=== PATIENT | male | born 1965 | race Two or more races ===

== ENCOUNTER 2019-08-19 10:46 | Inpatient (IN) | payer MEDICAID ==
[~2019-08-19] VITALS: Ht 188 cm; Wt 64.9 kg
[2019-08-19] MEDS ORDERED: ASPIRIN 325MG EC TABLET PO ONE (12:00)
[2019-08-19 12:01] LABS: BASOPHILS % 1.1 % (0.0-2.0); EOSINOPHILS % 2.1 % (0.0-5.0); HEMATOCRIT. 43.8 % (42.0-52.0); HEMOGLOBIN. 14.2 g/dL (14.0-18.0); LYMPHOCYTES % 24.8 % (20.0-50.0); MEAN CORPUSCULAR HEMOGLOBIN 27.4 pg (28.0-32.0); MEAN CORPUSCULAR VOLUME 84.6 fL (80.0-94.0); MEAN PLATELET VOLUME 8.8 fl (7.4-10.4); MONOCYTES % 7.7 % (2.0-8.0); NEUTROPHILS % 64.3 % (40.0-76.0); PLATELET 201 x1000/uL (130-400); RED BLOOD CELL COUNT 5.18 mill/uL (4.7-6.1); RED CELL DISTRIBUTION WIDTH 15.1 % (11.6-14.6)
[2019-08-19 12:07] LABS: CHLORIDE 108 mEq/L (98-107)
[2019-08-19 12:11] LABS: ETHANOL BLOOD < 10 mg/dL
[2019-08-19 12:14] LABS: LDL CHOLESTEROL 118 mg/dL (5-100)
[2019-08-19 22:10] VITALS: BP 133/73
[2019-08-19] MEDS ORDERED: CLONIDINE 0.1MG TABLET PO PRN (22:45)
[2019-08-20] VITALS: BP 130/78
[2019-08-20 04:00] VITALS: BP 108/66
[2019-08-20 06:55] LABS: BASOPHILS % 0.7 % (0.0-2.0); EOSINOPHILS % 2.7 % (0.0-5.0); HEMATOCRIT. 39.8 % (42.0-52.0); HEMOGLOBIN. 12.9 g/dL (14.0-18.0); LYMPHOCYTES % 33.4 % (20.0-50.0); MEAN CORPUSCULAR HEMOGLOBIN 27.2 pg (28.0-32.0); MEAN CORPUSCULAR VOLUME 83.7 fL (80.0-94.0); MEAN PLATELET VOLUME 9.3 fl (7.4-10.4); MONOCYTES % 7.5 % (2.0-8.0); NEUTROPHILS % 55.7 % (40.0-76.0); PLATELET 193 x1000/uL (130-400); RED BLOOD CELL COUNT 4.76 mill/uL (4.7-6.1)
[2019-08-20 07:18] LABS: CHLORIDE 106 mEq/L (98-107)
[2019-08-20 07:33] LABS: LDL CHOLESTEROL 109 mg/dL (5-100)
[2019-08-20 07:34] LABS: CREATINE KINASE 201 IU/L (39-308); HDL CHOLESTEROL 70 mg/dL (40-59)
[2019-08-20 07:36] LABS: CREATINE KINASE MB FRACTION < 1.0 ng/mL (0.5-3.6)
[2019-08-20 08:00] VITALS: BP 105/58
[2019-08-20] MEDS: ASPIRIN 81MG TABLET PO SCH (08:40)
[2019-08-20] MEDS: ENOXAPARIN 40MG/0.4ML SYR SUBCUT SCH (08:40)
[2019-08-20 09:22] LABS: CLARITY URINE CLEAR (CLEAR); COLOR URINE YELLOW (YELLOW); KETONES URINE NEGATIVE (NEGATIVE); LEUKOCYTE ESTERASE URINE NEGATIVE (NEGATIVE); NITRITE URINE NEGATIVE (NEGATIVE); OCCULT BLOOD URINE NEGATIVE (NEGATIVE); PROTEIN URINE NEGATIVE (NEGATIVE); SPECIFIC GRAVITY URINE 1.016 (1.005-1.030); UROBILINOGEN URINE 0.2 E.U./dL (0.2-1.0)
[2019-08-20 10:18] LABS: *AMPHETAMINES SCREEN URINE NEGATIVE (NEGATIVE); *BARBITURATES SCREEN URINE NEGATIVE (NEGATIVE); *BENZODIAZEPINES SCREEN URINE NEGATIVE (NEGATIVE); PHENCYCLIDINE URINE SCREEN PRESUMTIVE POSITIVE (NEGATIVE)
[2019-08-20 10:19] LABS: *COCAINE SCREEN URINE PRESUMTIVE POSITIVE (NEGATIVE); CANNABINOID URINE SCREEN PRESUMTIVE POSITIVE (NEGATIVE); METHADONE URINE SCREEN NEGATIVE (NEGATIVE); OPIATES URINE SCREEN NEGATIVE (NEGATIVE)
[2019-08-20] MEDS ORDERED: DOCUSATE SODIUM 100MG CAPSULE PO PRN (13:30)
[2019-08-20] MEDS ORDERED: ACETAMINOPHEN 325MG TABLET PO PRN (13:30)
[2019-08-20] MEDS ORDERED: CLONIDINE 0.1MG TABLET PO PRN (13:30)
[2019-08-20] MEDS ORDERED: ONDANSETRON HCL 4MG/2ML INJ IV PRN (13:30)
[2019-08-20] MEDS ORDERED: LORAZEPAM 0.5MG TABLET PO PRN (13:30)
[2019-08-20] MEDS ORDERED: IPRATROPIUM/ALBUTEROL 0.5-3(2.5)MG/3ML NEB HHN PRN (13:30)
[2019-08-20] MEDS ORDERED: HYDROCODONE/ACETAMINOPHEN 5/325MG TABLET PO PRN (13:30)
[2019-08-20] MEDS: CLOPIDOGREL 75MG TABLET PO SCH (15:17)
[2019-08-20 16:00] VITALS: BP 117/58
[2019-08-20 20:00] VITALS: BP 106/62
[2019-08-20] MEDS ORDERED: ATORVASTATIN CALCIUM 20MG TABLET PO SCH (21:00)
[2019-08-21] VITALS: BP 105/56
[2019-08-21 04:00] VITALS: BP 92/57
[2019-08-21 07:37] LABS: BASOPHILS % 0.8 % (0.0-2.0); EOSINOPHILS % 2.9 % (0.0-5.0); HEMATOCRIT. 42.5 % (42.0-52.0); HEMOGLOBIN. 13.7 g/dL (14.0-18.0); MEAN CORPUSCULAR HEMOGLOBIN 27.3 pg (28.0-32.0); MEAN CORPUSCULAR VOLUME 84.7 fL (80.0-94.0); MEAN PLATELET VOLUME 8.8 fl (7.4-10.4); NEUTROPHILS % 60.3 % (40.0-76.0); PLATELET 176 x1000/uL (130-400); RED BLOOD CELL COUNT 5.02 mill/uL (4.7-6.1)
[2019-08-21 08:00] VITALS: BP 106/58
[2019-08-21] MEDS: ASPIRIN 81MG TABLET PO SCH (08:46)
[2019-08-21] MEDS: CLOPIDOGREL 75MG TABLET PO SCH (08:46)
[2019-08-21] MEDS: ENOXAPARIN 40MG/0.4ML SYR SUBCUT SCH (08:46)
[2019-08-21 08:52] LABS: CHLORIDE 107 mEq/L (98-107)
[2019-08-21 09:00] LABS: TOTAL IRON BINDING CAPACITY 310 ug/dL (250-450)
[2019-08-21 13:16] VITALS: BP 109/61
[2019-08-21 16:00] VITALS: BP 107/65
[2019-08-21 20:30] VITALS: BP 117/53
[2019-08-21] MEDS ORDERED: ATORVASTATIN CALCIUM 40MG TABLET PO SCH (21:00)
[2019-08-22 00:14] VITALS: BP 107/59
[2019-08-22 04:20] VITALS: BP 109/63
[2019-08-22 07:16] LABS: BASOPHILS % 1.2 % (0.0-2.0); EOSINOPHILS % 2.8 % (0.0-5.0); HEMATOCRIT. 42.5 % (42.0-52.0); HEMOGLOBIN. 13.9 g/dL (14.0-18.0); LYMPHOCYTES % 31.9 % (20.0-50.0); MEAN CORPUSCULAR HEMOGLOBIN 27.5 pg (28.0-32.0); MEAN CORPUSCULAR VOLUME 84.2 fL (80.0-94.0); MEAN PLATELET VOLUME 8.6 fl (7.4-10.4); MONOCYTES % 9.5 % (2.0-8.0); NEUTROPHILS % 54.6 % (40.0-76.0); PLATELET 178 x1000/uL (130-400); RED BLOOD CELL COUNT 5.04 mill/uL (4.7-6.1); RED CELL DISTRIBUTION WIDTH 14.7 % (11.6-14.6)
[2019-08-22 08:00] VITALS: BP 110/65
[2019-08-22 08:28] LABS: CHLORIDE 106 mEq/L (98-107)
[2019-08-22] MEDS: CLOPIDOGREL 75MG TABLET PO SCH (09:06)
[2019-08-22] MEDS: ASPIRIN 81MG TABLET PO SCH (09:06)
[2019-08-22] MEDS: ENOXAPARIN 40MG/0.4ML SYR SUBCUT SCH (09:07)
[2019-08-22 12:00] VITALS: BP 111/63
[2019-08-22] MEDS ORDERED: CLOP75TA15 PO (12:19)
[2019-08-22] MEDS ORDERED: ASPI-1160 PO (12:19)
[2019-08-22] MEDS ORDERED: LIP40 PO (12:19)
== END 2019-08-22 15:20 | disposition home or self-care (01) | DRG 45 ==
LOC: ER 10:46 → 7WST 13:53 → EDBEDREQSVC 14:04 → EDBEDREQ 14:04 → ENRESERV 19:51
PROVIDERS: ADMIT Internal Medicine; ATTEND Internal Medicine
DX: I63.81 Other cerebral infarction due to occlusion or stenosis of small artery (principal); G81.94 Hemiplegia, unspecified affecting left nondominant side; D64.9 Anemia, unspecified; E78.5 Hyperlipidemia, unspecified; I10 Essential (primary) hypertension; F12.10 Cannabis abuse, uncomplicated; F14.10 Cocaine abuse, uncomplicated; F16.10 Hallucinogen abuse, uncomplicated; Z71.51 Drug abuse counseling and surveillance of drug abuser
CPT/HCPCS: 36415; 70551; 71045; 80048; 80053; 80061; 80305; 80320; 81003; 82550; 82553; 82728; 82962; 83036; 83540; 83550; 83721; 84484; 85025; 93005; 93306; 93970; 97162; 99285; J1650; G0480

== ENCOUNTER 2020-09-30 14:15 | Emergency (ER) | payer MEDICAID ==
[~2020-09-30] VITALS: Ht 185.4 cm; Wt 81.0 kg
[~2020-09-30 14:15] MED LIST: ASPI-1160 PO; CLOP75TA15 PO; LIP40 PO
[2020-09-30] MEDS ORDERED: LABETALOL 5MG/ML SYR 20 MG/4 ML SYRINGE IV ONE (14:45)
[2020-09-30 14:51] LABS: BASOPHILS % 0.7 % (0.0-2.0); EOSINOPHILS % 1.7 % (0.0-5.0); HEMATOCRIT. 43.2 % (42.0-52.0); HEMOGLOBIN. 14.1 g/dL (14.0-18.0); LYMPHOCYTES % 35.1 % (20.0-50.0); MEAN CORPUSCULAR HEMOGLOBIN 27.3 pg (28.0-32.0); MEAN CORPUSCULAR VOLUME 83.8 fL (80.0-94.0); MEAN PLATELET VOLUME 8.4 fl (7.4-10.4); NEUTROPHILS % 54.5 % (40.0-76.0); PLATELET 165 x1000/uL (130-400); RED BLOOD CELL COUNT 5.15 mill/uL (4.7-6.1); RED CELL DISTRIBUTION WIDTH 15.4 % (11.6-14.6)
[2020-09-30 14:56] LABS: CHLORIDE 108 mEq/L (98-107); PROTHROMBIN TIME 10.3 sec (9.6-11.0)
[2020-09-30 15:00] LABS: ETHANOL BLOOD < 10 mg/dL
[2020-09-30 15:03] LABS: LDL CHOLESTEROL 100 mg/dL (5-100)
[2020-09-30] MEDS ORDERED: HYDRALAZINE 20MG/ML VIAL IV NR (15:06)
[2020-09-30] MEDS ORDERED: LORAZEPAM 2MG/ML CPJ IV ONE (16:15)
[2020-09-30] MEDS ORDERED: IOHEXOL-300 100 ML BOTTLE ONE (17:14)
[2020-09-30 18:14] VITALS: BP 179/82
== END 2020-09-30 18:16 | disposition left against medical advice (07) ==
LOC: ER 14:21
DX: G40.909 Epilepsy, unspecified, not intractable, without status epilepticus (principal); F16.129 Hallucinogen abuse with intoxication, unspecified; V44.5XXA Car driver injured in collision with heavy transport vehicle or bus in traffic accident, initial encounter; I10 Essential (primary) hypertension; Y93.89 Activity, other specified; Y92.488 Other paved roadways as the place of occurrence of the external cause; Z86.73 Personal history of transient ischemic attack (TIA), and cerebral infarction without residual deficits; Q28.1 Other malformations of precerebral vessels; Z79.82 Long term (current) use of aspirin; Z79.899 Other long term (current) drug therapy
CPT/HCPCS: 36415; 70450; 70496; 71045; 80053; 80320; 82962; 83721; 84484; 85025; 85610; 93005; 96374; 96375; 99285; J0360; J2060; J3490; Q9967; G0480